=== PATIENT | female | born 1960 | race Caucasian/White ===

== ENCOUNTER 2017-08-14 10:39 | Inpatient (IN) | payer OTHER ==
[~2017-08-14] VITALS: Ht 167.6 cm; Wt 73.1 kg
--- NOTE | 2017-08-14 10:56 | ED PSYCHIATRIC COMPLAINT ---
History of Present Illness General Chief Complaint: Psychiatric Related Complaint Stated Complaint: DEPRESSION; +SI; DETOX FROM ETOH Source: patient, family Exam Limitations: no limitations Vital Signs & Intake/Output Vital Signs & Intake/Output Vital Signs Date Time Temp Pulse Resp B/P B/P Pulse O2 O2 Flow FiO2 Mean Ox Delivery Rate 08/14 1344 97.3 65 20 142/76 98 08/14 1141 Room Air 08/14 1054 98.4 68 18 130/89 98 Room Air Allergies Coded Allergies: No Known Drug Allergies (Intermediate, NONE 08/14/17) Reconcile Medications Fluoxetine HCl (Prozac) 20 MG CAPSULE 1 CAP PO QAM MENTAL HEALTH (Reported) LORazepam (Ativan) 1 MG TAB 1 TAB PO DAILY PRN ANXIETY (Reported) Triage Note: STATES, "AMINA BEEN DEALING WITH A LOT OF DEPRESSION AND DRINKING A LOT". DENIES HI, BUT STAES, "IF I DIDNT WAKE UP IT WOULD BE OK.". VERY TEARY, WITH PT. ON PROZAC AND ATIVAN, REPORTS SHE IS COMPLIANT WITH MEDS. Triage Nurses Notes Reviewed? yes Onset: Abrupt Duration: day(s): Timing: recent history HPI: 08/14/17 57-year-old female presents to the emergency Department severe depression with suicidal ideation. She says she has a long-standing history of depression. She is having thoughts about hurting herself. She says she would be happy are just not being around. Past History Travel History Traveled to [place] past 21 day No Medical History Any Pertinent Medical History? see below for history Neurological: NONE EENT: NONE Cardiovascular: NONE Respiratory: NONE Gastrointestinal: NONE Hepatic: NONE Renal: NONE Musculoskeletal: NONE Psychiatric: anxiety Endocrine: NONE Surgical History Surgical History: non-contributory Psychosocial History What is your primary language Slovak Tobacco Use: Current Daily Use Daily Tobacco Use Amount/Type: Smokeless tobacco daily ETOH Use: heavy use Family History Hx Contributory? No Review of Systems Review of Systems Constitutional: Denies: fever. EENTM: Reports: no symptoms. Respiratory: Reports: no symptoms. Cardiovascular: Reports: no symptoms. GI: Reports: no symptoms. Genitourinary: Reports: no symptoms. Musculoskeletal: Reports: no symptoms. Skin: Reports: no symptoms. Neurological/Psychological: Reports: anxiety, depressed. Hematologic/Endocrine: Reports: no symptoms. Immunologic/Allergic: Reports: no symptoms. Physical Exam Physical Exam General Appearance: alert, awake, anxious, mild distress Head: atraumatic, normal appearance Eyes: Bilateral: normal appearance, PERRL, EOMI. Ears, Nose, Throat: normal pharynx, normal ENT inspection, hearing grossly normal Neck: normal inspection, supple, full range of motion Respiratory: normal breath sounds, chest non-tender, no respiratory distress Cardiovascular: regular rate/rhythm Gastrointestinal: soft, non-tender Extremities: normal range of motion Neurological/Psychiatric: awake, alert, anxious, depressed affect Appearance/Memory/Insight: appropriate appearance Behavoir/Eye Contact/Speech: cooperative Thoughts/Hallucinations: normal thought pattern Skin: intact SAD PERSONS SAD PERSONS Response Value Age <19 or >45 years? yes 1 Depression/Hopelessness? yes 2 Previous Attempts/Psych Care yes 1 Excessive Ethanol/Drug Use? yes 1 Social Support? has support 0 Stated Future Intent? yes 2 Total 7 SAD PERSONS Done? yes Progress Differential Diagnosis: drug intoxication, drug overdose, depression Plan of Care: Orders Procedure Date/time Status Regular Diet 08/14 D Active Admit to inpatient psych 08/14 1405 Active Lab Add-on Test 08/14 1324 Active Patient Data - inpatient psych 08/14 1320 Active Admit to inpatient psych 08/14 1320 Active TSH REFLEX 08/14 1128 Active LIPID PANEL 08/14 1128 Active GLYCOSYLATED HGB 08/14 1128 Active Continuous Observation Monitor 08/14 1105 Active URINE DRUG SCREEN FOR ER ONLY 08/14 1105 Complete ETHANOL 08/14 1105 Active COMPREHENSIVE METABOLIC PANEL 08/14 1105 Active CBC WITHOUT DIFFERENTIAL 08/14 1105 Complete ED CRISIS PSYCH CONSULT 08/14 1105 Active Vital Signs 08/14 UNK Active Nursing Misc 08/14 UNK Active CIWA 08/14 UNK Active Alternative Nursing Therapy 08/14 UNK Active Activity/Ambulation 08/14 UNK Active Current Medications Sig/Osei Start time Last Medication Dose Stop Time Status Admin Fluoxetine HCl 20 MG DAILY 08/15 0900 UNVr (Prozac) Acetaminophen 650 MG Q6P PRN 08/14 1330 UNVr (Tylenol) Al Hydroxide/Mg 30 ML Q4-6 PRN PRN 08/14 1330 UNVr Hydroxide (Maalox Plus) Benztropine Mesylate 1 MG Q6P PRN 08/14 1330 UNVr (Cogentin 1 MG Tablet) Benztropine Mesylate 1 MG Q6P PRN 08/14 1330 UNVr (Cogentin) Gabapentin 300 MG Q6P PRN 08/140 UNVr (Neurontin) Haloperidol 5 MG Q6P PRN 08/140 UNVr (Haldol) Haloperidol 5 MG Q6P PRN 08/14 1330 UNVr (Haldol) Lorazepam 2 MG Q2P PRN 08/14 133 UNVr (Ativan) Lorazepam 1 MG Q2P PRN 08/14 1330 UNVr (Ativan) Lorazepam 2 MG Q6P PRN 08/14 1330 UNVr (Ativan) Magnesium Hydroxide 30 ML AT BEDTIME PRN 08/14 133 UNVr (Milk Of Magnesia) Trazodone HCl 50 MG AT BEDTIME NEED.. 08/14 133 UNVr (Desyrel) Folic Acid 1 MG DAILY 08/14 1321 UNVr 08/14 (Folic Acid) 08/16 0901 1341 Multivitamins 1 TAB DAILY 08/14 1321 UNVr 08/14 (Theragran Vitamins) 1341 Thiamine HCl 100 MG DAILY 08/14 1321 UNVr 08/14 (Vitamin B1) 08/16 0901 1341 Laboratory Tests 08/14/17 1128: Anion Gap 14, Estimated GFR > 60, BUN/Creatinine Ratio 16.7, Glucose 104 H, Hemoglobin A1c 5.0, Calcium 9.4, Total Bilirubin 0.6, AST 21, ALT 20, Alkaline Phosphatase 107, Total Protein 7.4, Albumin 4.9, Globulin 2.5, Albumin/Globulin Ratio 2.0, Triglycerides 104, Cholesterol 205 H, LDL Cholesterol, Calc 96, HDL Cholesterol 89 H, Cholesterol/HDL Ratio 2, TSH &T3 &Free T4 Intrp Pending, CBC w Diff NO MAN DIFF REQ, RBC 4.62, MCV 86.7, MCH 29.6, MCHC 34.2, RDW 13.6, MPV 7.4, Gran % 71.6, Lymphocytes % 21.6, Monocytes % 5.6, Eosinophils % 0.8, Basophils % 0.4, Absolute Granulocytes 4.8, Absolute Lymphocytes 1.4, Absolute Monocytes 0.4, Absolute Eosinophils 0.1, Absolute Basophils 0, Serum Alcohol < 10.0 08/14/17 1113: Urine Opiates Screen < 100, Methadone Screen < 40, Barbiturate Screen < 60, Ur Phencyclidine Scrn < 6.00, Amphetamines Screen < 100, U Benzodiazepines Scrn < 85, Urine Cocaine Screen < 50, Urine Cannabis Screen < 5.00 Initial ED EKG: none Departure Departure Disposition: STILL A PATIENT Condition: Stable Clinical Impression Primary Impression: Depression Departure Forms: Customer Survey General Discharge Information Psych Admission Note Psychiatric Admission: I have seen and evaluated YIRIZWAN. I have also reviewed all the pertinent lab results and diagnostic results. YIRIZWAN will be admitted to our inpatient Psychiatric unit for treatment and care.
[2017-08-14 11:40] LABS: ABSOLUTE BASOPHIL COUNT 0 /CUMM (0.0-0.2); ABSOLUTE EOSINOPHIL COUNT 0.1 /CUMM (0.0-0.7); ABSOLUTE GRANULOCYTE CT 4.8 /CUMM (1.4-6.5); ABSOLUTE LYMPH COUNT 1.4 /CUMM (1.2-3.4); ABSOLUTE MONOCYTE COUNT 0.4 /CUMM (0.10-0.60); BASOPHIL % 0.4 % (0.0-2.0); EOSINOPHIL % 0.8 % (0-5); GRANULOCYTE % 71.6 % (42.2-75.2); MEAN CORPUSCULAR HGB 29.6 PG (27.0-31.0); MEAN CORPUSCULAR HGB CONC 34.2 G/DL (33.0-37.0); MEAN CORPUSCULAR VOLUME 86.7 FL (81.0-99.0); MEAN PLATELET VOLUME 7.4 FL (7.4-10.4); PLATELET COUNT 343 /CUMM (130-400); RBC DISTRIBUTION WIDTH 13.6 % (11.5-14.5); RED BLOOD CELL CT 4.62 /CUMM (4.20-5.40); WHITE BLOOD CELL COUNT 6.7 /CUMM (4.8-10.8)
[2017-08-14] MEDS ORDERED: PROZAC20 M2 PO (11:49)
[2017-08-14] MEDS ORDERED: ATIVAN1 M1 PO (11:50)
--- NOTE | 2017-08-14 13:11 | ED PSYCH CRISIS CONSULTATION ---
See Addendum Crisis Consult Basic Assessment Date of Consult: 08/14/17 Responsible Person/Accompanied By: Insurance Authorization: Insurance #1: Insurance name: BRIANA Phone number: Policy number: [id number] Group number: Authorization number: ED Provider: Patient's ED Provider: El Last DO Primary Care Physician: Patient's PCP: Patient Has No Primary Care Dr PCP's Phone Number: Current Psychiatrist: Soco Pearson APRN Chief Complaint: Psychiatric Related Complaint Patient's Quote: "I've been going through some though times" Present Illness: Pt is a 57 year old female presenting to the ED with her . Pt reports she has been going through a tough time as her son has been going through a lot of legal issues lately. Pt further offers that the patient was incarcerated on 08/10/17 for violation of a protective order. Pt states she has tried to be both emotionally and financially suppotive of her son. Pt reports her mother is also in a detention which is a source of stress. Pt reports she has been depressed for the last couple of years. Her depressive symptoms include: sleep disturbance, sporadic appetite, lack of energy, low motivation, and suicidal ideation. Pt reports, "if I didn't wake up maybe that wouldn't be so awful". Pt has been seeing Soco Pearson APRN for depression/ anxiety, for a little over a year. Pt was initially prescibed Zoloft but reports it wasn't helping so Soco Pearson switched her to Prozac. Pt is currently prescribed Prozac 20 mg as well as Ativan 1mg twice daily PRN anxiety. Crisis placed a call to Soco Pearson APRN ([phone]) and needed to leave a voicemail. Her voicemail stated she would return calls within 72-96 hours. Pt reports she has been drinking more over the last couple years. Pt reports she started drinking at 18. She reports she attended AA when her son was young but denies other ETOH treatment. Of note, patient's BAL was zero and utox was negative. Pt reports currently she has been drinking up to 2 bottles of wine per night and if she doesn't have wine she has been drinking other alcohol in the home. Pt [facility] and when she found out her son would be incarcerated she relapsed. Pt denies seizures but endorses blackouts that she states are occuring more frequently. Crisis discussed various treatment options with pt and pt's . We argeed a voluntary psych admission would be helpful at this time. Crisis consulted with Dr. Cadena. Pt will be admitted to [facility]. Patient's Address: [address] [place] [address] [place] [address] Other Who Do You Live With? Spouse Family/Informants Interviewed: spoke w/ , Gunnar Alegria (in person) Allergies - Coded Allergies: No Known Drug Allergies (Intermediate, NONE 08/14/17) Current Medications - Scheduled Medications Fluoxetine HCl (Prozac) 20 MG CAPSULE 1 CAP PO QAM MENTAL HEALTH (Reported) Entered as Reported by Rodolfo Mcdonald on 08/14/17 1149 Scheduled PRN Medications LORazepam (Ativan) 1 MG TAB 1 TAB PO DAILY PRN ANXIETY (Reported) Entered as Reported by Rodolfo Mcdonald on 08/14/17 1150 Laboratory Results: Laboratory Tests 08/14/17 1128: Anion Gap 14, Estimated GFR > 60, BUN/Creatinine Ratio 16.7, Glucose 104 H, Hemoglobin A1c Pending, Calcium 9.4, Total Bilirubin 0.6, AST 21, ALT 20, Alkaline Phosphatase 107, Total Protein 7.4, Albumin 4.9, Globulin 2.5, Albumin/ Globulin Ratio 2.0, Triglycerides Pending, Cholesterol Pending, LDL Cholesterol, Calc Pending, HDL Cholesterol Pending, Cholesterol/HDL Ratio Pending, TSH &T3 & Free T4 Intrp Pending, CBC w Diff NO MAN DIFF REQ, RBC 4.62, MCV 86.7, MCH 29.6, MCHC 34.2, RDW 13.6, MPV 7.4, Gran % 71.6, Lymphocytes % 21.6, Monocytes % 5.6, Eosinophils % 0.8, Basophils % 0.4, Absolute Granulocytes 4.8, Absolute Lymphocytes 1.4, Absolute Monocytes 0.4, Absolute Eosinophils 0.1, Absolute Basophils 0, Serum Alcohol < 10.0 08/14/17 1113: Urine Opiates Screen < 100, Methadone Screen < 40, Barbiturate Screen < 60, Ur Phencyclidine Scrn < 6.00, Amphetamines Screen < 100, U Benzodiazepines Scrn < 85, Urine Cocaine Screen < 50, Urine Cannabis Screen < 5.00 Past History Past Medical History Neurological: NONE EENT: NONE Cardiovascular: NONE Respiratory: NONE Gastrointestinal: NONE Hepatic: NONE Renal: NONE Musculoskeletal: NONE Psychiatric: anxiety, depression, substance abuse Endocrine: NONE Psychosocial History Strengths/Capabilities: 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 pt has a supportive Physical Limitations (Interventions): none Psychiatric Treatment History Psych Treatment Psychiatric Treatment Yes Inpatient Treatment No Outpatient Treatment Yes Location of Treatment Outpatient prescriber, Soco Pearosn APRN Reason for Treatment depression/anxiety Dates of Treatment currently sees Soco Fonseca Response to Treatment fair, pt reports she wasn't doing better on the zoloft so she cross tapered to Prozac recently Diagnosis by History: depression anxiety Substance Use/Abuse History Drug Use/Abuse 1 Substances Used/Abused Yes Substance Used/Abused Alcohol First Use 18 Last Used 08/13/17 How much used/taken 2 bottles of wine How often increasing over the last 2 years For how long pt has been drinking socially since 18 and reports increased use last 2 yrs Route of use oral Drug Use/Abuse 2 Substances Used/Abused Yes Substance Used/Abused Benzodiazepines First Use unk Last Used 08/13/17 How much used/taken pt reports sometimes she takes more ativan than prescribed at night How often nightly For how long unk Route of use oral Substance Abuse Treatment Substance Abuse Treatment Past Substance Abuse [place] No Current Mental Status Mental Status Orientation: Person, Place, Situation Affect: Anxious Speech: Soft Neuro-vegetative: Anhedonia, Appetite Increased, Concentration Poor, Energy Decreased, Helpless, Sleep Disturbance Appearance Appearance- Dress/Hygiene: pt presents as tearful with paper scrubs. Behaviors Thought Process: WNL Thought Content: WNL Memory: WNL Insight: Fair SI/HI Risk Assessment Past Suicidal Ideation/Attempts Yes Current Suicidal Ideation/Att Yes Past Homicidal Ideation/Att: No Current Homicidal Ideation/Attempts No Degree of Intent: Thoughts/No Intent Danger To: Self Gravely Disabled: Poor Impulse Control Risk Factors: high anxiety/distress, substance abuse, poor impulse control, limited support Lethality Ratin PTSD Checklist PTSD Done? patient declined ED Management Sitter: Yes Restraints: No DSM5/PS Stressors/Medical Prob Diagnosis' (DSM 5, Stressors, Medical): F32.9 Unspecified Depressive Disorder F41.9 Unspecified Anxiety Disorder F10.20 Alcohol Use Disorder Order, severe Son recently incarcerated 08/10/17 Current GAF: 28 Departure Disposition Psych Medical Clearance Date: 08/14/17 Medically Cleared at: 1210 Time Started: 1210 Time Ended: 1230 Psychiatrist Consulted: Juan Cadena MD Date Disposition Established: 08/14/17 Time Disposition Established: 1300 Plan for Disposition - Modality: Inpatient Psychiatry Facility: [facility] Follow-up Appt Date: 08/14/17 Rationale for Disposition: Pt endorses SI, specifically wishing she would not wake up in the morning and if that were to happen it might be better off. Pt does drink nightly (up to 2 bottles of wine) and at times also takes xanax at night to help her sleep/ "pass out" Type of IP Admission: Voluntary Referrals Patient Has No Primary Care Dr (PCP/Family)
--- NOTE | 2017-08-14 14:25 | IP CRISIS DIAG ASSESS PSYCH ---
Diagnostic Assessment Basic Assessment Insurance Authorization: Insurance #1: Insurance name: BRIANA Phone number: Policy number: [id number] Group number: Authorization number: Pt is authorized for 4 days from 08/14/17-08/17/17 with review on the . Reviewer will call cps clinician. Reviewer is Marely C. [phone]. Auth # [id number]. The phone number for discharge planning is [phone]. Primary Care Physician: Patient's PCP: Patient Has No Primary Care Dr PCP's Phone Number: Patient's Quote: "I've been going through some though times" Present Illness: Pt is a 57 year old female presenting to the ED with her . Pt reports she has been going through a tough time as her son has been going through a lot of legal issues lately. Pt further offers that the patient was incarcerated on 08/10/17 for violation of a protective order. Pt states she has tried to be both emotionally and financially suppotive of her son. Pt reports her mother is also in a half-way which is a source of stress. Pt reports she has been depressed for the last couple of years. Her depressive symptoms include: sleep disturbance, sporadic appetite, lack of energy, low motivation, and suicidal ideation. Pt reports, "if I didn't wake up maybe that wouldn't be so awful". Pt has been seeing Soco Pearson APRN for depression/ anxiety, for a little over a year. Pt was initially prescibed Zoloft but reports it wasn't helping so Soco Pearson switched her to Prozac. Pt is currently prescribed Prozac 20 mg as well as Ativan 1mg twice daily PRN anxiety. Crisis placed a call to Soco Pearson APRN ([phone]) and needed to leave a voicemail. Her voicemail stated she would return calls within 72-96 hours. Pt reports she has been drinking more over the last couple years. Pt reports she started drinking at 18. She reports she attended AA when her son was young but denies other ETOH treatment. Of note, patient's BAL was zero and utox was negative. Pt reports currently she has been drinking up to 2 bottles of wine per night and if she doesn't have wine she has been drinking other alcohol in the home. Pt reports she was sober for 70 days this year [facility] and when she found out her son would be incarcerated she relapsed. Pt denies seizures but endorses blackouts that she states are occuring more frequently. Crisis discussed various treatment options with pt and pt's . We argeed a voluntary psych admission would be helpful at this time. Crisis consulted with Dr. Cadena. Pt will be admitted to [facility]. Patient's Address: [address] [place] [address] [place] [address] Other Who Do You Live With? Spouse Feel Safe Where You Live? Yes Feel Safe in Your Relationship Yes Marital Status: Do You Have Children? Yes Ages? adult son Primary Language? Qatari Language(s) Spoken At Home: Qatari Family/Informants Interviewed: spoke w/ , Gunnar Alegria (in person), left message for Soco Pearson APRN Allergies - Coded Allergies: No Known Drug Allergies (Intermediate, NONE 08/14/17) Current Medications - Scheduled Medications Fluoxetine HCl (Prozac) 20 MG CAPSULE 1 CAP PO QAM MENTAL HEALTH (Reported) Entered as Reported by Rodoflo Mcdonald on 08/14/17 1149 Scheduled PRN Medications LORazepam (Ativan) 1 MG TAB 1 TAB PO DAILY PRN ANXIETY (Reported) Entered as Reported by Rodolfo Mcdonald on 08/14/17 1150 Consequences of Psych Med Use: Pt reports she was prescribed zoloft but she didn't find it effective so she was recently cross tapered to prozac. pt also takes more of the ativan than prescribed at night w/ wine to sleep Lab Results: Laboratory Tests 08/14/17 1128: Anion Gap 14, Estimated GFR > 60, BUN/Creatinine Ratio 16.7, Glucose 104 H, Hemoglobin A1c 5.0, Calcium 9.4, Total Bilirubin 0.6, AST 21, ALT 20, Alkaline Phosphatase 107, Total Protein 7.4, Albumin 4.9, Globulin 2.5, Albumin/Globulin Ratio 2.0, Triglycerides 104, Cholesterol 205 H, LDL Cholesterol, Calc 96, HDL Cholesterol 89 H, Cholesterol/HDL Ratio 2, TSH &T3 &Free T4 Intrp 0.819, CBC w Diff NO MAN DIFF REQ, RBC 4.62, MCV 86.7, MCH 29.6, MCHC 34.2, RDW 13.6, MPV 7.4 , Gran % 71.6, Lymphocytes % 21.6, Monocytes % 5.6, Eosinophils % 0.8, Basophils % 0.4, Absolute Granulocytes 4.8, Absolute Lymphocytes 1.4, Absolute Monocytes 0.4, Absolute Eosinophils 0.1, Absolute Basophils 0, Serum Alcohol < 10.0 08/14/17 1113: Urine Opiates Screen < 100, Methadone Screen < 40, Barbiturate Screen < 60, Ur Phencyclidine Scrn < 6.00, Amphetamines Screen < 100, U Benzodiazepines Scrn < 85, Urine Cocaine Screen < 50, Urine Cannabis Screen < 5.00 Toxicology Screen Completed? Yes Results: negative Symptoms of Use: pt drinks up to two bottles of wine daily Past History Abuse/Trauma History Trauma History/Current Trauma: Denies Legal History Current Legal Status: none Have you ever been arrested? 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 has a supportive Physical Limitations (Interventions): none Psychiatric Treatment History Psych Treatment Psychiatric Treatment Yes Inpatient Treatment No Outpatient Treatment Yes Location of Treatment Outpatient prescriber, Soco Pearson APRN Reason for Treatment depression/anxiety Dates of Treatment currently sees Soco Fonseca Response to Treatment fair, pt reports she wasn't doing better on the zoloft so she cross tapered to Prozac recently Diagnosis by History: depression anxiety Risk Factors: high anxiety/distress, substance abuse, poor impulse control, limited support Substance Use/Abuse History Drug Use/Abuse minimum 12mo Hx 1 Substances Used/Abused Yes Substance Used/Abused Benzodiazepines First Use unk Last Used 08/13/17 How much used/taken pt reports sometimes she takes more ativan than prescribed at night How often nightly For how long unk Route of use oral Drug Use/Abuse minimum 12mo Hx 2 Substances Used/Abused Yes Substance Used/Abused Alcohol First Use 18 Last Used 08/13/17 How much used/taken up to two bottles of wine How often daily For how long on and off since 18, increased use last 2 years Route of use oral Substance Abuse Treatment Substance Abuse Treatment Past Substance Abuse [place] No Sexual History Sexually Active Yes # of partners 1 Sexual Orientation Heterosexual Education History Highest Level of Education: high school/GED Preferred Learning Style: visual, auditory, experiential Current Mental Status Mental Status Orientation: Person, Place, Situation Affect: Anxious Speech: Soft Neuro-vegetative: Anhedonia, Appetite Increased, Concentration Poor, Energy Decreased, Helpless, Sleep Disturbance Appearance Appearance- Dress/Hygiene: pt presents as tearful with paper scrubs. Behaviors Thought Process: WNL Thought Content: WNL Memory: WNL Insight: Fair SI/HI Risk Assessment - Minimum 6mo History- Past Suicidal Ideation/Attempts Yes Current Suicidal Ideation/Att Yes Past Homicidal Ideation/Att: No Current Homicidal Ideation/Attempts No Degree of Intent: Thoughts/No Intent Danger To: Self Gravely Disabled: Poor Impulse Control Risk Factors: high anxiety/distress, substance abuse, poor impulse control, limited support Lethality Ratin Needs/Init TX Plan/Goals: Decrease thoughts of dying increase social supports medication evaluation psychiatric assessment psychosocial assessment individual/group therapy family meeting AUDIT-C Questionnaire: AUDIT-C Questionnaire: Response Value ETOH use in the past year 4 or more per week 4 # drinks typical/day 10 or more 4 6 or > drinks per occasion Daily/Almost Daily 4 Total 12 DSM5/PS Stressors/Medical Prob Diagnosis' (DSM 5, Stressors, Medical): F32.9 Unspecified Depressive Disorder F41.9 Unspecified Anxiety Disorder F10.20 Alcohol Use Disorder Order, severe Son recently incarcerated 08/10/17 Current GAF: 28
[2017-08-14 16:13] VITALS: BP 124/64
[2017-08-14 16:15] VITALS: BP 124/64
[2017-08-14 18:20] VITALS: BP 114/68
[2017-08-14 19:37] VITALS: BP 130/74
[2017-08-14 19:38] VITALS: BP 130/74
[2017-08-14 21:48] VITALS: BP 128/72
[2017-08-15] VITALS (9 sets, daily range): BP systolic 123–133; BP diastolic 60–78
--- NOTE | 2017-08-15 10:51 | SOCIAL WORKER SOCIAL HX PSYCH ---
Social History Basic Assessment Insurance Authorization: Insurance #1: Insurance name: [employer] Phone number: Policy number: [id number] Group number: Authorization number: Curr Source of Income/Entitlements: employment Primary Care Physician: Patient's PCP: Patient Has No Primary Care Dr PCP's Phone Number: Present Problem: Per Diagnostic Evaluation completed by this quality analyst/technical writer on 08/14/17: Pt is a 57 year old female presenting to the ED with her . Pt reports she has been going through a tough time as her son has been going through a lot of legal issues lately. Pt further offers that the patient was incarcerated on 08/10/17 for violation of a protective order. Pt states she has tried to be both emotionally and financially suppotive of her son. Pt reports her mother is also in a fdc which is a source of stress. Pt reports she has been depressed for the last couple of years. Her depressive symptoms include: sleep disturbance, sporadic appetite, lack of energy, low motivation, and suicidal ideation. Pt reports, "if I didn't wake up maybe that wouldn't be so awful". Pt has been seeing Soco Pearson APRN for depression/ anxiety, for a little over a year. Pt was initially prescibed Zoloft but reports it wasn't helping so Soco Pearson switched her to Prozac. Pt is currently prescribed Prozac 20 mg as well as Ativan 1mg twice daily PRN anxiety. Crisis placed a call to Soco Pearson APRN ([phone]) and needed to leave a voicemail. Her voicemail stated she would return calls within 72-96 hours. Pt reports she has been drinking more over the last couple years. Pt reports she started drinking at 18. She reports she attended AA when her son was young but denies other ETOH treatment. Of note, patient's BAL was zero and utox was negative. Pt reports currently she has been drinking up to 2 bottles of wine per night and if she doesn't have wine she has been drinking other alcohol in the home. Pt reports she was sober for 70 days this year around passover and when she found out her son would be incarcerated she relapsed. Pt denies seizures but endorses blackouts that she states are occuring more frequently. Today, 08/15/17, patient was oriented x4 and alert. She is future oriented and is focused on her treatment in order to get to know her 3 month old grandchild. Primary Language? Chinese Language(s) Spoken At Home: Chinese Living Situation Rents or Owns Home? owns Feel Safe Where You Are Living Yes Feel Safe in Relationships? Yes Allergies - Coded Allergies: No Known Drug Allergies (Intermediate, NONE 08/14/17) Current Medications - Scheduled Medications Fluoxetine HCl (Prozac) 20 MG CAPSULE 1 CAP PO QAM MENTAL HEALTH (Reported) Entered as Reported by Rodolfo Mcdonald on 08/14/17 1149 Last Taken: 20 MG on 08/14/17 Scheduled PRN Medications LORazepam (Ativan) 1 MG TAB 1 TAB PO DAILY PRN ANXIETY (Reported) Entered as Reported by Rodolfo Mcdonald on 08/14/17 1150 Last Taken: 1 MG on 08/14/17 1207 Consequences of Psych Med Use: Pt reports she was prescribed zoloft but it wasn't working so her LABORATORY MACHINIST cross tapered her to prozac. She is now on prozac 20 mg every day and Ativan 1 mg twice daily prn anxiety. Past History Past Medical History Neurological: NONE EENT: NONE Cardiovascular: NONE Respiratory: NONE Gastrointestinal: NONE Hepatic: NONE Renal: NONE Musculoskeletal: NONE Psychiatric: alcohol dependence, anxiety, depression Endocrine: NONE Past Surgical History Surgical History: non-contributory /Family History Place/Country of Origin: [place], [place] Childhood Family Constellation: Mother, Father, Brother and Sister Primary Childhood Caretakers: mother Family Life During Childhood: Parents were when pt was 7 years old. pt reports that her mother had a "mental breakdown" after divorce and was in the hospital for a month. Pt reports that her childhood was "dysfunctional" but her mother made it work and there was always food on the table and provided the necessities to survive. Pt reports her childhood was "pretty average for a divorce family." > Mother's Age (Current/): 87 Relationship w/Mother: good Father's Age (Current/): 72 () Relationship w/Father: didn't talk much Any Sibling(s)? Yes Sibling's Gender(s)/Age(s): male Sibling 1: (52), female Sibling 2: (58 - adopted) Relationship w/Sibling(s): Pt reports that her relatinship with her brother was strained but that they recently started talking. Pt reports that her and her adopted sister are not speaking. Relationship w/Friends: "good" Abuse/Trauma History Trauma History/Current Trauma: Denies Legal History Legal Guardian/Address/Phone: n/a Current Legal Status: none Have you ever been arrested No Number of Arrests: 0 Hx of Juvenile Legal Charges? No Hx of Adult Legal Charges? 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 No History of Blackouts? Yes Last Blackout: this week ADL Limitations: none [place]/Social/Peer Relations Pt reports not having many friends but that the ones her and her have they have a good relationship with them. Patient's Ethnicity: Russian, , [place] Are There Developmental Issues? No Milestones Achieved: fine motor, gross motor Psychiatric Treatment History Psych Treatment Inpatient Treatment No Outpatient Treatment Yes Location of Treatment Outpatient prescriber, Soco Pearson APRN Reason for Treatment depression/anxiety Dates of Treatment currently sees Soco Fonseca Response to Treatment fair, pt reports she wasn't doing better on the zoloft so she cross tapered to Prozac recently Precipitating Factors: Depression, Anxiety Current Repairer Controller Tester: Soco Pearson APRN Treatment of Prior Episodes: Pt's only treatment episode is med management through [facility] Diagnosis: depression anxiety Psychodynamic Issues: Pt reports mother was recently placed into a fdc. Pt's son was recently incarcerated (08/10/17) for violation of a protective order. Pt reports she has exhaused finances to help her son avoid [facility]. Risk Factors: high anxiety/distress, substance abuse, poor impulse control, limited support Substance Use/Abuse History Drug Use/Abuse:Min 12 mo hx 1 Substance Used/Abused Alcohol First Use 18 Last Used 08/13/17 How much used/taken up to two bottles of wine How often daily For how long on and off since 18, increased use last 2 years Route of use oral Drug Use/Abuse:Min 12 mo hx 2 Substance Used/Abused Benzodiazepines First Use unk Last Used 08/13/17 How much used/taken prescribed 1mg, but takes more with wine @ night for sleep How often daily For how long increased use over last several weeks Route of use oral Have Had Periods of Sobriety? Yes Explain: pt reports she has had periods of sobreity from ETOH. She reports her last period of sobreity was around passover. She reports she was sober for 70 days and with the verdict of her son being incarcerated, she relapsed. Relapse History? Yes Explain: pt relapsed when she found out her son was going to [facility]. Have You Ever Attended AA? Yes Do You Attend AA Currently? No Do You Have a Sponsor? No Other Community Resources Used: none Symptoms of Use: pt drinks up to two bottles of wine daily and has been taking ativan at night. 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 of Jobs in Last 5 Years: 1 (same job last 16 years) Attendance: Normal Performance: Good Comments: pt reports she has been having a hard time concentrating at work History Have You Been in The ? No Current Mental Status Mental Status Orientation: Person, Place, Situation Affect: Appropriate, WNL Speech: Soft, WNL Neuro-vegetative: Anhedonia, Appetite Increased, Concentration Poor, Energy Decreased, Helpless, Sleep Disturbance Appearance Appearance- Dress/Hygiene: pt presents as tearful with paper scrubs. Behaviors Thought Process: WNL Thought Content: WNL Memory: WNL Insight: Fair SI/HI Risk Assessment Past Suicidal Ideation/Attempts Yes Current Suicidal Ideation/Att Yes Past Homicidal Ideation/Att: No Current Homicidal Ideation/Attempts No Degree of Intent: Thoughts/No Intent Danger To: Self Gravely Disabled: Poor Impulse Control Lethality Ratin - Conclusion and Recommendations for treatment - and discharge planning
--- NOTE | 2017-08-15 13:10 | SOCIAL WORKER PROG NOTE PSYCH ---
Social Work Progress Note Progress Note Estrellita shared about some of her stressors. Her son was sentenced to a year in senior care over violating a protective order. This came after 2 years of going back and forth with his court case. She said having her Mom go into a penitentiary a year and half ago and her being laid off from work last year just compounded her stress. She said she likes to be the one taking care of things and on top of everything. She notices that she had started to have some wine at night to relax and help calm her down. The drinking has steadily increased. She is now consuming a bottle to two bottles of wine and taking some Ativan. She was very tearful talking about how she has been having alot of trouble sleeping and focusing. She stopped caring about her house, what she looks like and started thinking "I don't care if I don't wake up tomorrow." She has a hx of depression since early 's. She said she has been in therapy on and off throughout her life, but hasn't been seeing a therapist currently. She does have Soco Ramey APRN for medication, but states it really isn't therapy. I let her know that Soco Ramey apparently called the nurses station today to report she would be going on vacation for 3 weeks starting tomorrow and she was cancelling Estrellita's appt for Sunday. She is recommending a higher lOC like an IOP. Estrellita said she is open to IOP, but would need to see if her employer would accomadate the schedule. 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 She is very emotional about her son going to senior care. She stated that she didn't think she'd be able to breathe again until he was out of senior care. Her goal of being here is to start enjoying life again and to not drink. She wants things to get better and appears motivated for the help right now. She is open to having a family meeting with her .
--- NOTE | 2017-08-15 13:30 | CPS PROVIDER INIT ASMT PSYCH ---
Psychiatric Admission Child Development Teacher's Note Reviewed: Yes Patient Seen and Examined: Yes Identifying Information: The patient is a 57-year-old white female Chief Complaint: Patient's chief complaint to the crisis medical social worker was "I have been going through some tough time." Reaction to Hospitalization: The patient was admitted voluntarily History of Present Illness Onset of Illness: Pt reports she has been going through a tough time as her son has been going through a lot of legal issues lately. Pt further offers that the patient was incarcerated on 08/10/17 for violation of a protective order. Pt states she has tried to be both emotionally and financially suppotive of her son. Pt reports her mother is also in a halfway which is a source of stress. Pt reports she has been depressed for the last couple of years. Her depressive symptoms include: sleep disturbance, sporadic appetite, lack of energy, low motivation, and suicidal ideation. Pt reports, "if I didn't wake up maybe that wouldn't be so awful". Pt has been seeing Soco Pearson APRN for depression/ anxiety, for a little over a year. Pt was initially prescibed Zoloft but reports it wasn't helping so Soco Pearson switched her to Prozac. Pt is currently prescribed Prozac 20 mg as well as Ativan 1mg twice daily PRN anxiety. Circumstances Leading to Admission: Passive wishes of or not caring if she woke up or not. Problem(s) Justifying Need for Admission: Passive wishes of or not caring if she wakes up. Past Psychiatric History Past Diagnosis(es)- if any: F32.9 Unspecified Depressive Disorder F41.9 Unspecified Anxiety Disorder F10.20 Alcohol Use Disorder Order, severe Past Precipitating Factors- if any: Alcohol use - Include inpatient and outpatient treatment Treatment History: This is the patient's first inpatient psychiatric admission. She has been in outpatient treatment with Soco Ramey APRN for about a year or so, she denied doing intensive outpatient programs in the past History of Suicide Attempts or Gestures Denied history of suicide attempts Substance Abuse History: Alcohol use disorder. Denied abuse of other substances. She reported that she has been on Ativan for a while in the past 2 months she was taking 3 tablets a day instead of 2 Allergies: Coded Allergies: No Known Drug Allergies (Intermediate, NONE 08/14/17) Home Med List: Prozac 20 mg daily and Ativan 1 mg twice daily as needed for anxiety she has been taking 3 a day for the past 2 months or so - Include any medical condition(s) that may - impact the patient's recovery/remission Past History Medical History Neurological: NONE EENT: NONE Cardiovascular: NONE Respiratory: NONE Gastrointestinal: NONE Hepatic: NONE Renal: NONE Musculoskeletal: NONE Psychiatric: alcohol dependence, anxiety, depression Endocrine: NONE Isolation History: Standard Surgical History Surgical History: non-contributory Psychiatric Family/Social Hx Family History Psychiatric Illness: The patient reported that her mom had a nervous breakdown after divorce Substance Use: The patient reported there is a history of alcoholism on her mother's side including her maternal uncle and his son (patient's first-degree cousin) Suicides: Patient denied any history of completed suicides among her blood relations Social History Living Situation: Patient's lives with and son Significant Relationships (family/friends): and son Education: High school diploma Vocation/Occupation: 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 Healthly Behaviors Screening Tobacco Screening Tobacco Use from ED Docu: Current Daily Use Daily Tobacco Use Amount/Type: Smokeless tobacco daily - If tobacco counseling indicated - the following topics are required. - #1 Recognizing dangerous situations. - #2 Coping Skills. - #3 Basic information about quitting. Status of Tobacco Cessation Counseling: #1, #2 AND #3 Completed Cessation Med Status Nicotine Gum Ordered Alcohol Screening - ETOH screen POS if BAL >=80 or Audit-C>= M4/F3 Audit-C Score from Diag Assess: 12 Blood Alcohol Level: Laboratory Tests 08/14 1128 Toxicology Serum Alcohol (<10 MG/DL) < 10.0 Alcohol Use Screening Results: Pos per Audit C &/or BAL - If ETOH counseling indicated - the following topics are required. - #1 Express concern about the patient's - drinking at unhealthy levels, include informing - of national norms for moderate drinking: - men <= 14 drinks/week, max 4 drinks/occasion - women <= 7 drinks/week, max 3 drinks/occasion - #2 Providing feedback, including linking alcohol to - negative physical effects (liver injury, hypertension) - negative emotional effects (relationship problems and - depression) - negative occupational consequences (reduced work - performance) - #3 Advising the patient to abstain from alcohol or - to drink below national norms for moderate drinking - (as listed above). Status of ETOH Use Counseling: #1, #2 AND #3 Completed. Metabolic Screening - Screen if on a Neuroleptic Medication - Metabolic screening should include: - Blood Pressure, BMI, Glucose or Hgb A1c, & a - Lipid profile from within the past 365 days. Metabolic Screening ([X]) Not Applicable, patient not on a neuroleptic. Exam and Plan Mental Status Examination Ambulation Status: The patient was steady on her feet. Appearance: Normal Attitude towards examiner: Calm and cooperative Psychomotor activity: Normal psychomotor activity Behavior: No abnormal behaviors Quality of speech: Normal speech, not slurred, not pressured Affect: Good range of affect Mood: Depressed Suicidal Ideation: Denied suicidal ideation but she acknowledged that she was having passive thoughts of not caring whether she woke up in the morning or not Homicidal Ideation: Denied violent thoughts or homicidal ideation Hallucinations: She denied hallucinations. Paranoid/Delusional Material: She denied feeling paranoid. There were no delusions during the interview. Difficulties with thought organization: Patient did not have any difficulties with thought organization, she was coherent. Insight: Partial insight Judgment: Good judgment Orientation: She was alert and oriented to time, place, and person. Cognition: She showed good attention and concentration, and there were no difficulties with information processing. Memory Function: She did not seem to have any gross impairment in her short-term memory. Estimate of intellectual functioning: Average Assets/Strengths Patient Identified Assets/Strengths: Patient is intelligent, employed, and has supportive family. Impression/Plan Impression and Plan: 57-year-old white female who was admitted because of passive wishes of and heavy drinking - Include all active medical diagnosis that require tx DSM 5 Diagnosis(es): Unspecified depressive disorder, unspecified anxiety disorder, alcohol use disorder - Initial Tx Plan for Active Psych & Medical Conditions Treatment Plan: Inpatient psychiatric care with safety checks every 15 minutes and Alcohol detoxification protocol Increase Prozac to 40 mg daily Add Klonopin 2 mg at bedtime Biopsychosocial assessment, collateral information, and aftercare planning - Factors that would help patient function - in a less restrictive setting. Factors: Patient will be discharge once the detoxification is completed and if she continues to deny wishes of
--- NOTE | 2017-08-15 14:38 | History & Physical ---
General Information and HPI History of Present Illness: This middle-aged female came into the hospital because of feeling too depressed and alcohol abuse. She reports that because of some family reasons she has been feeling very depressed and wanted to . She also reports she has been drinking too much for last couple of weeks and usually drinking between 1 -2 bottles of wine. She denies any specific physical problems recently and medically she has been generally doing good except for some back pain. She reports that she has been seeing a psychiatrist and takes the antidepressant but seems like it is not working enough and she has been more depressed. She denies any ongoing medical problems and does not have any regular primary care physician anymore. She admits to smoking the cigarettes recently but she has been a smoker for more than 30 years the past. She denies any other illegal drugs. She claims she is but her was just laid off. She has one son who is in some legal troubles and going to [facility] which also makes her more depressed. 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 Allergies/Medications Allergies: Coded Allergies: No Known Drug Allergies (Intermediate, NONE 08/14/17) Home Med list Fluoxetine HCl (Prozac) 20 MG CAPSULE 1 CAP PO QAM MENTAL HEALTH (Reported) LORazepam (Ativan) 1 MG TAB 1 TAB PO DAILY PRN ANXIETY (Reported) Past History Travel History Traveled to [place] past 21 day No Medical History Neurological: NONE EENT: NONE Cardiovascular: NONE Respiratory: NONE Gastrointestinal: NONE Hepatic: NONE Renal: NONE Musculoskeletal: NONE Psychiatric: alcohol dependence, anxiety, depression Endocrine: NONE Isolation History: Standard Surgical History Surgical History: non-contributory Past Family/Social History Psychosocial History ETOH Use: heavy use Employment History 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 EENTM: Denies: no symptoms. Cardiovascular: Denies: no symptoms. Respiratory: Denies: no symptoms. GI: Denies: no symptoms. Genitourinary: Denies: no symptoms. Musculoskeletal: Denies: no symptoms. Skin: Denies: no symptoms. Neurological/Psychological: Reports: see HPI, depressed, emotional problems. Hematologic/Endocrine: Denies: no symptoms. All Other Systems: Reviewed and Negative Exam & Diagnostic Data Last 24 Hrs of Vital Signs/I&O Vital Signs Date Time Temp Pulse Resp B/P B/P Pulse O2 O2 Flow FiO2 Mean Ox Delivery Rate 08/15 08 97.5 67 130/78 08/15 0812 97.5 67 130/78 08/14 2148 63 128/72 08/14 1938 98.6 80 130/74 08/14 1937 98.6 80 130/74 08/14 1820 98.6 74 114/68 08/14 1615 97.6 67 124/64 08/14 1613 97.6 67 124/64 Intake & Output 08/15 1600 08/15 0800 08/15 0000 Intake Total Output Total Balance Patient 161 lb Weight Physical Exam General Appearance Alert, Oriented X3, Cooperative, No Acute Distress Skin No Rashes, No Breakdown, No Significant Lesion HEENT Atraumatic, PERRLA, EOMI, Mucous Membr. moist/pink Neck Supple, No JVD, No thryomegaly, +2 Carotid Pulse wo Bruit Lymphatic Cervical nl Cardiovascular Regular Rate, Normal S1, Normal S2, No Murmurs, Gallops, Rubs Lungs Clear to Auscultation, Normal Air Movement Abdomen Soft, No Tenderness, No Hepatospenomegaly, No Masses Neurological Exam Findings: Normal Gait, Normal Speech, Strength at 5/5 X4 Ext, Normal Tone, Cranial Nerves 3-12 NL, Reflexes 2+ Cranial Nerves II through XII: Within normal limits Extremities No Clubbing, No Cyanosis, No Edema, No Tenderness/Swelling Assessment/Plan Assessment: This young female is admitted to the hospital for the first time because of increased depression and alcohol abuse. Her admission physical exam is essentially stable and negative for any acute illness. Lab work including a CBC electrolytes and renal functions are all normal and her liver function is also normal and the alcohol level at the time of admission was less than 10. She is fairly stable from medical standpoint and does not need any other workup or treatment. She has already received thiamine and folic acid and will be given multivitamin daily and does not need any other treatment. As Ranked By This Provider Problem List: 1. Depression Miscellaneous Miscellaneous Documentation Attending Case Discussed With: Harshal PANDEY,Hector Primary Care Physician: Patient Has No Primary Care Dr Patient sees these Specialists None Level of Patient Care: TJ Castillo Attending MD Review Statement Attending Statement Attending MD Statement: examined this patient, reviewed EMR data (avail), discussed with nursing Attending Assessment/Plan: This middle-aged female was admitted because of increased depression and alcohol abuse. From medical standpoint she is fairly stable without any acute problems and her admission lab work including liver functions normal. She will get to 4 thiamine and folic acid and multivitamins and does not need any other treatment from medical standpoint.
[2017-08-16 07:42] VITALS: BP 125/62
[2017-08-16 07:52] VITALS: BP 125/62
[2017-08-16 12:15] VITALS: BP 102/66
[2017-08-16 12:27] VITALS: BP 102/66
--- NOTE | 2017-08-16 13:35 | CP SOUTH PROGRESS NOTE PSYCH ---
Psych (Inpt) Progress Note Progress Note The treatment team discussed the patient's progress, treatment plan, and aftercare plans. The treatment team included: LCSWS, RNs, Therapy staff, and psychiatrist. Vital Signs Date Time Temp Pulse B/P 08/16 1215 69 102/66 08/16 0752 97.3 73 125/62 08/16 0742 97.1 73 125/62 08/15 1930 97.1 80 126/69 Mental Status Examination: The patient was alert and oriented to time, place, and person. She was steady on her feet. She was calm and cooperative. She showed normal psychomotor activity, no abnormal behaviors, and no tremors. Estrellita's speech was normal/not slurred, not pressured. She exhibited a good range of affect. She did acknowledge feelings of depression but denied suicidal ideation. She said that, even before her admission, she was not having thoughts of suicide, rather she had passive thoughts of "not caring whether she woke up in the morning or not." She denied violent thoughts or homicidal ideation. She denied hallucinations. She denied feeling paranoid. There were no delusions during the interview. Patient did not have any difficulties with thought organization, she was coherent. Partial insight, good judgment, she showed good attention and concentration, and there were no difficulties with information processing. She did not seem to have any gross impairment in her short-term memory. Assessment: Estrellita Alegria is a 57-year-old White Female who was admitted because of passive wishes of and heavy drinking Diagnoses: Unspecified depressive disorder, unspecified anxiety disorder, alcohol use disorder Treatment Plan Update: Reduce Klonopin to 1.5 mg at bedtime Change Gabapentin to 600 mg Q 8:00AM & 2:00 PM, and 800 mg QHS Continue Prozac 40 mg daily Nicotine 2 MG Q2 HRS NEEDED PRN 08/15 9094
--- NOTE | 2017-08-16 15:20 | SOCIAL WORKER PROG NOTE PSYCH ---
Social Work Progress Note Progress Note I scheduled a family meeting with Estrellita's for 2:30pm today. Informed Estrellita that we would be meeting then. Mr. Alegria arrived for the meeting. Also in attendance at the meeting was Dr. Caputo and [employer] student Eusebio Torrez. Estrellita reported feeling "great" today. She was smiling and sharing how good it was to talk and get things out. We talked about the importance of not holding her emotions in and the importance of having therapy along with medication. She is very interested in attending [facility] and thinks the schedule will work with her employer. She was informed that she would have to taper off of Klonopin. She has been on Klonopin for several years, but she was very willing to start a taper. Dr. Caputo reviewed the taper schedule with her and reviewed her other medications. Mr. Alegria had no safety concerns. There are no access to guns in the home. Talked about not having alcohol in the home as well. He said there is nothing there currently and he is not really a drinker. Brought up how self care is important with all the different stressors they have going on and it would be good to get back to some of the things Estrellita has stopped doing. Estrellita stated she wants to "start living life again and stop just existing." Estrellita is ready to d/c tomorrow. I will work on coordinating with [facility] to discuss the referral. Spoke with Luz Elena Urias LPC -[facility], shared Estrellita's plan to taper off Klonopin. She will speak with the prescriber at [facility] and get back to me with a decision. Luz Elena returned the call shortly later and stated they will accept her in the dual program. Intake scheduled for 11:30am.
[2017-08-16 15:46] VITALS: BP 121/64
[2017-08-16 20:28] VITALS: BP 132/72
[2017-08-17 07:54] VITALS: BP 110/66
--- NOTE | 2017-08-17 10:35 | SOCIAL WORKER PROG NOTE PSYCH ---
Social Work Progress Note Progress Note Estrellita looked well today. She said this is the "best I've felt in years." She is so appreciative of the services/ help she has received here. She stated she feels "renewed." She said she will keep this experience with her. She denied any current cravings to use alcohol or thoughts about drinking right now. We talked about developing a "tool box" of coping skills that she could utilize when she feels like having a drink. She said she enjoys the adult coloring books and finds it calming. She said she may start going to AA meetings. Talked about trying different meetings until she finds one she likes. She also has her sister nubia to reach out to for support. She feels like she is in a good place in terms of her son being incarcerated. She knows right now he is okay and she feels less anxious about that. She will be easing her way back into work so she can start with IOP next week. Talked about doing [place] paperwork with her employer. Talked with Estrellita briefly about having a co-pay for IOP. I was unclear of the amount, but IOP staff had called to inform of this ahead of time. She seemed to still want to pursue the IOP. I mentioned using the business office to possibly develop a financial plan and that she doesn't need to feel tied to doing it for the full 6 weeks. She understood and said she would discuss it with the IOP staff at intake. Wished her well.
--- NOTE | 2017-08-17 10:35 | Patient Discharge Instructions ---
Psych Discharge Inst General Discharge Information Reason for Admission: depression and anxiety, alcohol use Psy Discharge Primary Diag+ Unspecified Depressive Di Generalized Anxiety Summary Tests/Major Procedures No significant lab abnormalities Studies Pending at DC: None Patient Instructions Contact Information Your Psychiatrist on [facility] was Hector Caputo MD * If you are experiencing an emergency related to this hospitalization, please call [phone] to contact the treating psychiatrist or the psychiatrist-on- call. * To Request a copy of your medical records, please contact the Medical Records Department at [phone]. * To request results of studies pending at the time of discharge, please call [phone]. * Continue your Medications until directed to stop by your Healthcare provider. General Medication Information Please continue to take your new medications and your continued home medications , unless otherwise indicated on your discharge medication list, or unless directed by your MD or [employer] SENIOR SERGEANT to stop them. Special Instructions Diet Regular Activity Normal - Tobacco Use Treatment Offered Post DC Medications Offered: Refused Tob Medication Tx Post DC Tobacco Treatment Plan: Refused Tobacco Tx Pgm - EtOH/Drug Use D/O Treatment Offered Post DC Medications Offered: Script Given-See Med List Post DC EtOH/SubAbuse TX Plan: Teddy SubAbuse/Dual IOP Metabolic Screening ([X]) Not Applicable, patient not on a neuroleptic. Advance Directives Does the Patient have Medical Advance Directives No/Refused further info Does Pt have Psychiatric Advance Directives? No/Refused further info Does Patient have a Designated Surrogate Decision Maker: No Information About Psychiatric Advance Directives Provided? Refused Discharge Plan Post Hospital Treatment Plan: Dual IOP (Substance Use and Mental health)
[2017-08-17] MEDS ORDERED: CLONAZEPAM0.5 M2 PO (10:59)
[2017-08-17] MEDS ORDERED: FLUOXETINE HCL40 M1 PO (11:03)
[2017-08-17] MEDS ORDERED: NEURONTIN600 M1 PO (11:03)
--- NOTE | 2017-08-17 12:16 | CP SOUTH PROGRESS NOTE PSYCH ---
Psych (Inpt) Progress Note Progress Note The treatment team discussed the patient's progress, treatment plan, and aftercare plans. The treatment team included: LCSWS, RNs, Group Therapy staff, and psychiatrist. Vital Signs Date Time Temp Pulse B/P 08/17 0754 96.9 66 110/66 08/16 2028 97.0 67 132/72 08/16 1546 73 121/64 Mental Status Examination: Estrellita was alert and oriented to time, place, and person. She was steady on her feet. She was calm and cooperative. She showed normal psychomotor activity, no abnormal behaviors, and no tremors. Estrellita's speech was normal/not slurred & not pressured. She exhibited a good range of affect. Estrellita reported that she is in a much better mood and denied suicidal ideation. She denied violent thoughts or homicidal ideation. She denied hallucinations. She denied feeling paranoid. There were no delusions during the interview. Patient did not have any difficulties with thought organization, she was coherent. Estrellita showed good attention and concentration, and there were no difficulties with information processing, and no gross impairment in her short- term memory. Assessment: Estrellita Alegria is a 57-year-old White Female who was admitted to the inpatient psych unit @ on 08/14/2017 because of passive wishes of and heavy drinking Diagnoses: Unspecified depressive disorder, unspecified anxiety disorder, alcohol use disorder Treatment Plan Update: D/C Home after IOP intake
--- NOTE | 2017-08-17 12:17 | DISCHARGE SUMMARY REPORT-PSYCH ---
Visit Information Visit Dates/Diagnosis' Admission Date: 08/14/17 Discharge Date: 08/17/17 Reason for Admission: depression and anxiety, alcohol use Psy Discharge Primary Diag: Unspecified Depressive Di Generalized Anxiety Hospital Course Course Allergies: Coded Allergies: No Known Drug Allergies (Intermediate, NONE 08/14/17) Hospital Course/TX Response: Mental Status Examination: Estrellita was alert and oriented to time, place, and person. She was steady on her feet. She was calm and cooperative. She showed normal psychomotor activity, no abnormal behaviors, and no tremors. Estrellita's speech was normal/not slurred & not pressured. She exhibited a good range of affect. Estrellita reported that she is in a much better mood and denied suicidal ideation. She denied violent thoughts or homicidal ideation. She denied hallucinations. She denied feeling paranoid. There were no delusions during the interview. Patient did not have any difficulties with thought organization, she was coherent. Estrellita showed good attention and concentration, and there were no difficulties with information processing, and no gross impairment in her short- term memory. Assessment: Estrellita Alegria is a 57-year-old White Female who was admitted to the inpatient psych unit @ on 08/14/2017 because of passive wishes of and heavy drinking Diagnoses: Unspecified depressive disorder, unspecified anxiety disorder, alcohol use disorder Treatment Plan Update: D/C Home after IOP intake Discharge HBIPS - Tobacco Use Treatment Offered - EtOH/Drug Use D/O Treatment Offered Metabolic Screening - Screen if on a Neuroleptic Medication - Metabolic screening should include: - Blood Pressure, BMI, Glucose or Hgb A1c, & a - Lipid profile from within the past 365 days. Discharge Instructions General Discharge Information Discharge Diet Regular Discharge Activity Normal Referrals Ordered Referrals Provider Referral 08/17/17 For Groups: [[facility]] [facility] for mental health and substance use treatment Intake 08/17/17 11:30am [address] [id number] Provider Referral 08/29/17 For Groups: Outpatient Psychiatry [facility] Smoking Cessation Group 08/29/17 4pm [address] [id number] Prescriptions Stop taking the following medications: Fluoxetine HCl (Prozac) 20 MG CAPSULE ORAL Every Morning LORazepam (Ativan) 1 MG TAB ORAL DAILY as needed for ANXIETY Start taking the following new medications: Clonazepam (Clonazepam) 0.5 MG TABLET 1 Tablet ORAL SEE INSTRUCTIONS Qty = 40 No Refills Instructions: 3Tabs QHSx 6nights, then 2 tabs QHS x 1week then 1tab QHS x 1 week then STOP Comments: Last Taken:08/17/17 Time:8AM Fluoxetine HCl (Fluoxetine HCl) 40 MG CAPSULE 1 Capsule ORAL DAILY Qty = 30 No Refills Comments: Last Taken:08/17/17 Time:8AM Gabapentin (Neurontin) 600 MG TABLET 1 Tablet ORAL SEE INSTRUCTIONS Qty = 60 No Refills Instructions: 1 tab QAM, 1 Tab After[place] and 2 tabs QHS Comments: Last Taken:08/17/17 Time:8AM Studies Pending at Discharge None
--- NOTE | 2017-08-17 13:05 | SOCIAL WORKER PROG NOTE PSYCH ---
Social Work Progress Note Faxed Referral(s) Referred To: [facility] Transition of Care Documents sent: Health Summary Faxed to: [facility] Fax #: [phone] Faxed by: Renu Hernández Date faxed: 08/17/17 Time Faxed: [phone]
== END 2017-08-17 11:40 | DRG 881 ==
LOC: ERH 10:39 → ERHI 14:06 → CP SOUTH 14:06
PROVIDERS: Emergency Medicine
DX: F32.9 Major depressive disorder, single episode, unspecified (principal); F41.9 Anxiety disorder, unspecified
CPT/HCPCS: 80307; G0480; J3490